=== PATIENT | female | born 1985 | race Caucasian/White ===

== ENCOUNTER 2016-06-25 08:11 | Emergency (ER) | payer MEDICAID ==
[~2016-06-25] VITALS: Ht 160 cm; Wt 90.0 kg
[~2016-06-25 08:11] MED LIST: ACET325T33 PO; ACET500C5 PO; BACTDS PO; CEPH-443 PO; CYCL-319 PO; HYDR-906 PO; IBUP400T22 PO; METR500T PO; NITR-58 PO; PHEN-537 PO
[2016-06-25 08:14] VITALS: Ht 160 cm; Wt 90.0 kg
[2016-06-25] MEDS ORDERED: IBUPROFEN 800 MG TAB PO ONE (09:00)
--- NOTE | 2016-06-25 09:17 | RADRPT ---
PROCEDURE: XR Chest. CLINICAL INDICATION: Chest pain. TECHNIQUE: Single frontal chest x-ray. COMPARISON: None available FINDINGS: The lungs are clear. No focal opacification is seen. No pneumothorax or pleural effusion is seen. The cardiomediastinal silhouette is unremarkable. The osseous structures are grossly unremarkable. IMPRESSION: No evidence of acute cardiopulmonary disease. RPTAT: II .Ray Jenkins MD, MD Date Time Electronically viewed and signed by .Ray Jenkins MD, on 06/25/2016 09:16 .A/
[2016-06-25] MEDS ORDERED: IBUP-1542 PO (09:42)
[2016-06-25 10:16] VITALS: BP 127/76; PULSE 84; RESP 18; TEMP 97.9
--- NOTE | 2016-06-25 10:37 | ERD ---
ER Documentation Chief Complaint Date/Time DATE: 06/25/16 TIME: 10:30 Chief Complaint chest wall pain HPI 30-year-old female patient with no significant past medical history presents the ED complaining of chest pain that started 2 days ago. Reports that the pain radiates from the left side of her chest to her left shoulder. States that she does feel stressful. States that the pain is worsened when she presses on her chest. Denies any drug use, alcohol use, smoking. Denies any abdominal pain, nausea, vomiting, diarrhea, back pain, flank pain, constipation , hematuria. States that her last menses was 1 month ago. ROS All systems reviewed and are negative except as per history of present illness. Medications Home Meds Active Scripts Ibuprofen* (Motrin*) 600 Mg Tab, 600 MG PO Q6, #30 TAB Prov:TENNILLE GALLEGO PA-C 06/25/16 Cyclobenzaprine Hcl* (Cyclobenzaprine Hcl*) 10 Mg Tablet, 10 MG PO TID, #15 TAB Prov:LYDIA MEEKS NP 12/10/15 Hydrocodone/Acetaminophen ([place] 5-325 Tablet) 1 Each Tablet, 1 TAB PO Q6H Y for PAIN, #20 TAB Prov:LYDIA MEEKS NP 12/10/15 Acetaminophen* (Tylophen*) 500 Mg Capsule, 1 CAP PO Q6H Y for PAIN AND OR ELEVATED TEMP, #20 CAP Prov:LYDIA MEEKS NP 12/10/15 Acetaminophen* (Tylenol*) 325 Mg Tablet, 2 TAB PO Q8 Y for PAIN AND OR ELEVATED TEMP, #30 TAB Prov:TENNILLE GALLEGO PA-C 11/10/15 Cephalexin* (Keflex*) 500 Mg Capsule, 500 MG PO QID for 7 Days, CAP Prov:TENNILLE GALLEGO PA-C 11/10/15 Metronidazole* (Flagyl*) 500 Mg Tablet, 500 MG PO TID for 7 Days, TAB Prov:LESLIE GONZALEZ 11/09/15 Acetaminophen* (Tylophen*) 500 Mg Capsule, 1 CAP PO Q6H Y for PAIN AND OR ELEVATED TEMP, #20 CAP 0 Refills Prov:KARLI CHE PA-C 07/11/15 Ibuprofen* (Motrin*) 400 Mg Tab, 400 MG PO Q8, #30 TAB 0 Refills Prov:CHINEDUKARLI VASQUEZ 07/11/15 Phenazopyridine Hcl* (Pyridium*) 100 Mg Tab, 100 MG PO TID Y for URINARY PAIN, # 9 TAB 0 Refills Prov:CHINEDUKARLI TERRYC 07/11/15 Nitrofurantoin Monohyd Macrocr* (Macrobid*) 100 Mg Capsr, 100 MG PO BID for 7 Days, #14 CAP 0 Refills Prov:CHINEDUKARLI PA-C 07/11/15 Cephalexin* (Keflex*) 500 Mg Capsule, 500 MG PO QID for 7 Days, CAP Prov:BUCKY FITZGERALD. WATCH AND CLOCK REPAIRER 12/13/14 Acetaminophen* (Tylophen*) 500 Mg Capsule, 1 CAP PO Q6H Y for PAIN AND OR ELEVATED TEMP, #20 CAP Prov:TONY GONZALES PA-C 12/11/14 Sulfamethoxazole-Trimethoprim* (Bactrim* DS) 800-160 Mg Tab, 1 TAB PO BID for 7 Days, TAB Prov:TONY GONZALESC 12/11/14 Allergies Allergies: Coded Allergies: No Known Allergy (Verified , 11/08/15) PMhx/Soc History of Surgery: Yes () Anesthesia Reaction: No Hx Neurological Disorder: No Hx Respiratory Disorders: No Hx Cardiac Disorders: No Hx Psychiatric Problems: No Hx Miscellaneous Medical Probl: No Hx Alcohol Use: No Hx Substance Use: No Hx Tobacco Use: No Physical Exam Vitals Vital Signs Date Time Temp Pulse Resp B/P Pulse Ox O2 Delivery O2 Flow Rate FiO2 06/25/16 10:16 97.9 84 18 127/76 99 06/25/16 08:14 98.1 90 18 132/81 99 Physical Exam Const: [id number], well-nourished. In no acute distress. Head: Atraumatic, normocephalic Eyes: Normal Conjunctiva without injection. No purulent discharge. PERRL. EOMI ENT: Normal external ear. Ear canal without erythema. Tympanic membrane pearly reed without effusion or bulging. Nasal canal clear with normal turbinates. Moist oropharynx without tonsillar exudates. Non-erythematous pharynx. Uvula midline. No drooling. No trismus. Neck: Full range of motion. No meningismus. No cervical lymphadenopathy. Resp: Clear to auscultation bilaterally. No wheezing, rhonchi, rales, or crackles. No accessory muscle use. No retractions. Cardio: Regular rate and rhythm. No murmurs, rubs or gallops. Chest: Tenderness to palpation of the anterior chest. No rashes. No erythema or edema. Pain is reproducible. Abd: Soft, non tender, non distended. Normal bowel sounds. No palpable masses. No rebound tenderness. No guarding. Skin: No petechiae or rashes Back: No midline tenderness. No CVA tenderness. Ext: No cyanosis, or edema. Neur: Awake and alert. Psych: Normal Mood and Affect Results 24 hrs Current Medications Medications (Trade) Dose Ordered Sig/Mami Route PRN Reason Start Time Stop Time Status Last Admin Dose Admin Ibuprofen (Motrin) 800 mg ONCE ONCE PO 06/25/16 09:00 06/25/16 09:01 DC 06/25/16 09:00 Procedures/MDM This is a 30-year-old female patient with no significant past medical history presents the ED complaining of chest pain that started 2 days ago. Patient is afebrile and nontoxic-appearing. Patient has normal vital signs. Patient was further evaluated the EKG and chest x-ray. Patient was given ibuprofen here in the ED with improvement of her pain. PROCEDURE: XR Chest. CLINICAL INDICATION: Chest pain. TECHNIQUE: Single frontal chest x-ray. COMPARISON: None available FINDINGS: The lungs are clear. No focal opacification is seen. No pneumothorax or pleural effusion is seen. The cardiomediastinal silhouette is unremarkable. The osseous structures are grossly unremarkable. IMPRESSION: No evidence of acute cardiopulmonary disease. EKG reviewed and interpreted by Dr. Villatoro Rate/Rhythm: [85 bpm, Normal Sinus Rhythm] No ectopy, no ST elevations, no QT prolongation, normal axis. QRS, ST, T-waves: [No changes consistent w/ acute ischemia] Impression: [No evidence of ischemia or arrhythmia] Patient symptoms are likely due to chest wall pain since pain is reproducible. Low suspicion for acute myocardial infarction, pneumothorax, pneumonia, cardiac tamponade, pulmonary embolism, AAA, aortic dissection, Boerhaave's syndrome, cardiac dysrhythmias,meningitis, intracranial bleed, seizure, stroke, TIA or other emergent conditions. Discharge medications: Ibuprofen Follow up with primary care physician in 1-2 days. Instructed patient to return to the ED sooner for any worsening symptoms. Patient's questions were answered. Patient understood and agreed with discharge plan. Patient discharged stable. Departure Diagnosis: Primary Impression: Chest wall pain Condition: Stable Patient Instructions: Chest Wall Pain, Costochondritis Referrals: [facility] YOU HAVE RECEIVED A MEDICAL SCREENING EXAM AND THE RESULTS INDICATE THAT YOU DO NOT HAVE A CONDITION THAT REQUIRES URGENT TREATMENT IN THE EMERGENCY DEPARTMENT. FURTHER EVALUATION AND TREATMENT OF YOUR CONDITION CAN WAIT UNTIL YOU ARE SEEN IN YOUR DOCTORS OFFICE WITHIN THE NEXT 1-2 DAYS. IT IS YOUR RESPONSIBILITY TO MAKE AN APPOINTMENT FOR FOLOW-UP CARE. IF YOU HAVE A PRIMARY DOCTOR --you should call your primary doctor and schedule an appointment IF YOU DO NOT HAVE A PRIMARY DOCTOR YOU CAN CALL OUR PHYSICIAN REFERRAL HOTLINE AT IF YOU CAN NOT AFFORD TO SEE A PHYSICIAN YOU CAN CHOSE FROM THE FOLLOWING [facility] [address] [facility] [employer] [facility]. [facility] [address] [employer] [facility]. [facility] [address] [facility] [address] [facility]. [facility] [address] [facility]. [facility]. [address] [facility]. [facility] YOU HAVE RECEIVED A MEDICAL SCREENING EXAM AND THE RESULTS INDICATE THAT YOU DO NOT HAVE A CONDITION THAT REQUIRES URGENT TREATMENT IN THE EMERGENCY DEPARTMENT. FURTHER EVALUATION AND TREATMENT OF YOUR CONDITION CAN WAIT UNTIL YOU ARE SEEN IN YOUR DOCTORS OFFICE WITHIN THE NEXT 1-2 DAYS. IT IS YOUR RESPONSIBILITY TO MAKE AN APPOINTMENT FOR FOLOW-UP CARE. IF YOU HAVE A PRIMARY DOCTOR --you should call your primary doctor and schedule and appointment IF YOU DO NOT HAVE A PRIMARY DOCTOR YOU CAN CALL OUR PHYSICIAN REFERRAL HOTLINE AT . IF YOU CAN NOT AFFORD TO SEE A PHYSICIAN YOU CAN CHOSE FROM THE FOLLOWING PENDING SALE TO [facility]: [facility] [place] [address] [place] [address] [facility] [address] [place] [address] [facility] [address] [place] [address] [facility] URGENT CARE/SPECIALTIES Additional Instructions: Llame al doctor MAANA y geovanna neema SUSHMA PARA DENTRO DE 2-3 BAEZ.Dgale a la secretaria que nosotros le instruimos hacer esta sushma.Avise o llame si durbin condicin se empeora antes de la sushma. Regresa aqui si peor o no mejor. TENNILLE GALLEGO PA-C June 25, 2016 10:37 TENNILLE GALLEGO PA-C June 25, 2016 10:37
== END 2016-06-25 11:06 | disposition home or self-care (01) ==
LOC: FTE 08:11
DX: R07.89 Other chest pain (principal)
CPT/HCPCS: 71010; 93005; Z7502; Z7610

== ENCOUNTER 2016-12-19 17:46 | Emergency (ER) | payer MEDICAID ==
[~2016-12-19] VITALS: Wt 87.5 kg
[~2016-12-19 17:46] MED LIST changes: +IBUP-1542 PO
[2016-12-19] MEDS ORDERED: ACETAMINOPHEN 500 MG TAB PO STA (18:36)
--- NOTE | 2016-12-19 19:18 | RADRPT ---
PROCEDURE: US OB. CLINICAL INDICATION: Vaginal bleeding. TECHNIQUE: Multiple sonographic images of the uterus were obtained. The images were revi ewed on a PACS workstation. COMPARISON: No prior studies are available for comparison. FINDINGS: There is a single live intrauterine gestation. heart rate is 163 beats per minute. Measurements were made in order to determine age. The results are as follows: BPD = 3.70 cm. HC = 14.29 cm. AC = 11.89 cm. FL = 2.82 cm. Estimated weight is 202 +/- 30 grams. LMP growth percentile is 47 %. Maximum vertical pocket of amniotic fluid is 3.7 cm. Menstrual age by ultrasound dates is 17 weeks 4 days. The estimated date of delivery is 05/25/2017. Position is cephalic and placenta is anterior grade II. There is no evidence for an abruption or naomi centa previa. IMPRESSION: 1. Single live intrauterine gestation of 17 weeks 4 days menstrual age by ultrasound dates. 2. The estimated date of delivery is 05/25/2017. RPTAT: QQ .Amari Lentz MD, MD Date Time Electronically viewed and signed by .Amari Lentz MD, on 12/19/2016 19:17 .R/
--- NOTE | 2016-12-19 19:25 | ERD ---
ER Documentation Chief Complaint Chief Complaint LOWER R BACK PAIN WITH DYSURIA 18 WEEKS PREG HPI This is a 31-year-old female who presents the emergency department today complaining of right-sided pelvic pain and right-sided back pain with pain with urination for the past 15 days. Patient states that she was taking an antibiotic for urinary tract infection. States she finished the course. States that she has not taken any medication for her pain. States that she has been seen at [facility] but does not currently have care as she lives in [place] but her [facility] is located down here in the [place] area. She states it is too difficult to get to the doctor.. Denies any vaginal bleeding, fevers or chills. ROS All systems reviewed and are negative except as per history of present illness. Medications Home Meds Active Scripts Bacitracin* (Bacitracin Oint (UD)*) 1 Applic Oint, 1 APPLIC TOP ONCE, #7 PKT APPLY TO Labia Prov:CIARA REECE PA-C 12/19/16 Acetaminophen* (Tylophen*) 500 Mg Capsule, 1 CAP PO Q6H Y for PAIN AND OR ELEVATED TEMP, #30 CAP Prov:CIARA REECE PA-C 12/19/16 Ibuprofen* (Motrin*) 600 Mg Tab, 600 MG PO Q6, #30 TAB Prov:TENNILLE GALLEGO PA-C 06/25/16 Cyclobenzaprine Hcl* (Cyclobenzaprine Hcl*) 10 Mg Tablet, 10 MG PO TID, #15 TAB Prov:LYDIA MEEKS NP 12/10/15 Hydrocodone/Acetaminophen ([place] 5-325 Tablet) 1 Each Tablet, 1 TAB PO Q6H Y for PAIN, #20 TAB Prov:LYDIA MEESK NP 12/10/15 Acetaminophen* (Tylophen*) 500 Mg Capsule, 1 CAP PO Q6H Y for PAIN AND OR ELEVATED TEMP, #20 CAP Prov:LYDIA MEEKS NP 12/10/15 Acetaminophen* (Tylenol*) 325 Mg Tablet, 2 TAB PO Q8 Y for PAIN AND OR ELEVATED TEMP, #30 TAB Prov:TENNILLE GALLEGO PA-C 11/10/15 Cephalexin* (Keflex*) 500 Mg Capsule, 500 MG PO QID for 7 Days, CAP Prov:TENNILLE GALLEGOC 11/10/15 Metronidazole* (Flagyl*) 500 Mg Tablet, 500 MG PO TID for 7 Days, TAB Prov:LESLIE GONZALEZ 11/09/15 Acetaminophen* (Tylophen*) 500 Mg Capsule, 1 CAP PO Q6H Y for PAIN AND OR ELEVATED TEMP, #20 CAP 0 Refills Prov:KARLI CHE PA-C 07/11/15 Ibuprofen* (Motrin*) 400 Mg Tab, 400 MG PO Q8, #30 TAB 0 Refills Prov:KARLI CHE 07/11/15 Phenazopyridine Hcl* (Pyridium*) 100 Mg Tab, 100 MG PO TID Y for URINARY PAIN, # 9 TAB 0 Refills Prov:KARLI CHE 07/11/15 Nitrofurantoin Monohyd Macrocr* (Macrobid*) 100 Mg Capsr, 100 MG PO BID for 7 Days, #14 CAP 0 Refills Prov:KARLI CHE 07/11/15 Cephalexin* (Keflex*) 500 Mg Capsule, 500 MG PO QID for 7 Days, CAP Prov:LIA,BUCKY X. FOREST ECOLOGIST 12/13/14 Acetaminophen* (Tylophen*) 500 Mg Capsule, 1 CAP PO Q6H Y for PAIN AND OR ELEVATED TEMP, #20 CAP Prov:TONY GONZALES PA-C 12/11/14 Sulfamethoxazole-Trimethoprim* (Bactrim* DS) 800-160 Mg Tab, 1 TAB PO BID for 7 Days, TAB Prov:TONY GONZALES PA-C 12/11/14 Allergies Allergies: Coded Allergies: No Known Allergy (Verified , 11/08/15) PMhx/Soc Medical and Surgical Hx: pt denies Medical Hx History of Surgery: Yes () Anesthesia Reaction: No Hx Neurological Disorder: No Hx Respiratory Disorders: No Hx Cardiac Disorders: No Hx Psychiatric Problems: No Hx Miscellaneous Medical Probl: No Hx Alcohol Use: No Hx Substance Use: No Hx Tobacco Use: No Smoking Status: Never smoker Physical Exam Vitals Vital Signs Date Time Temp Pulse Resp B/P Pulse Ox O2 Delivery O2 Flow Rate FiO2 12/19/16 17:57 99.1 97 18 129/73 98 Physical Exam Const: NAD Head: Atraumatic Eyes: Normal Conjunctiva ENT: Normal External Ears, Nose and Mouth. Neck: Full range of motion..~ No meningismus. Resp: Clear to auscultation bilaterally Cardio: Regular rate and rhythm, no murmurs Abd: Soft, right sided pelvic tenderness non distended. Normal bowel sounds no tenderness at McBurney's. : External vaginal exam with no discharge, drainage, mild erythema 1 small abrasion no vesicles or lesions Skin: No petechiae or rashes Back: No midline or flank tenderness Ext: No cyanosis, or edema Neur: Awake and alert Psych: Normal Mood and Affect Result Diagram: 12/19/16 1850 Results 24 hrs Laboratory Tests Test 12/19/16 18:49 12/19/16 18:50 Urine Color YELLOW Urine Clarity CLEAR Urine pH 6.0 Urine Specific [place] 1.028 Urine Ketones NEGATIVEmg/dL Urine Nitrite NEGATIVEmg/dL Urine Bilirubin NEGATIVEmg/dL Urine Urobilinogen 1+mg/dL Urine Leukocyte Esterase TRACELeu/ul Urine Microscopic RBC 5/HPF Urine Microscopic WBC 4/HPF Urine Squamous Epithelial Cells FEW/HPF Urine Mucus FEW/HPF Urine Hemoglobin NEGATIVEmg/dL Urine Glucose NEGATIVEmg/dL Urine Total Protein NEGATIVEmg/dl White Blood Count 10.210^3/ul Red Blood Count 4.0510^6/ul Hemoglobin 11.9g/dl Hematocrit 35.6% Mean Corpuscular Volume 87.9fl Mean Corpuscular Hemoglobin 29.4pg Mean Corpuscular Hemoglobin Concent 33.4g/dl Red Cell Distribution Width 13.1% Platelet Count 38704^3/UL Mean Platelet Volume 9.4fl Neutrophils % 73.7% Lymphocytes % 18.0% Monocytes % 6.7% Eosinophils % 0.9% Basophils % 0.2% Nucleated Red Blood Cells % 0.0/100WBC Neutrophils # 7.510^3/ul Lymphocytes # 1.810^3/ul Monocytes # 0.710^3/ul Eosinophils # 0.110^3/ul Basophils # 0.010^3/ul Nucleated Red Blood Cells # 0.010^3/ul Beta HCG, Quantitative 70124.0mIU/ml Current Medications Medications (Trade) Dose Ordered Sig/Mami Route PRN Reason Start Time Stop Time Status Last Admin Dose Admin Acetaminophen (Tylenol Tab) 500 mg ONCE STAT PO 12/19/16 18:36 12/19/16 18:38 DC 12/19/16 18:46 DIAGNOSTIC IMAGING REPORT Patient: ELIZABETH SILVA : 1985 Age: 31 Sex: F MR #: [id number] DOS: 12/19/16 0000 Ordering MD: CIARA REECE PA-C Location: [facility] Room/Bed: PROCEDURE: US OB. CLINICAL INDICATION: Vaginal bleeding. TECHNIQUE: Multiple sonographic images of the uterus were obtained. The images were reviewed on a PACS workstation. COMPARISON: No prior studies are available for comparison. FINDINGS: There is a single live intrauterine gestation. heart rate is 163 beats per minute. Measurements were made in order to determine age. The results are as follows: BPD = 3.70 cm. HC = 14.29 cm. AC = 11.89 cm. FL = 2.82 cm. Estimated weight is 202 +/- 30 grams. LMP growth percentile is 47 %. Maximum vertical pocket of amniotic fluid is 3.7 cm. Menstrual age by ultrasound dates is 17 weeks 4 days. The estimated date of delivery is 05/25/2017. Position is cephalic and placenta is anterior grade II. There is no evidence for an abruption or placenta previa. IMPRESSION: 1. Single live intrauterine gestation of 17 weeks 4 days menstrual age by ultrasound dates. 2. The estimated date of delivery is 05/25/2017. RPTAT: QQ .Amari Lentz MD, MD Date Time Electronically viewed and signed by .Amari Lentz MD, MD on 12/19/2016 19:17 .R/ CC: CIARA REECE PA-C Procedures/MDM This is a 5 P4 31-year-old female who presents to the emergency department today complaining of sided pelvic pain and back pain. Patient states she is approximately 18 weeks given this I did obtain a complete OB workup. Laboratory work shows no elevated white blood cell count. Her hemoglobin is very mildly decreased. UA shows trace leukocyte esterase. Negative nitrites. 4 microscopic white blood cells. Beta quant [id number] Rh status B + Ultrasound shows a single live intrauterine gestation of 17 weeks and 4 days. There is no evidence for an abruption or placenta previa. Estimated date of delivery is May 25, 2017. heart rate is 163 bpm. Patient symptoms at this time is consistent with pelvic pain in early and back pain. Other differentials to consider early normal versus early failed versus placenta previa versus subchorionic hemorrhage. Patient is afebrile and otherwise well-appearing. I have low suspicion for ectopic , tubo ovarian abscess, ovarian torsion. Patient had no trauma and I do not feel she requires imaging of her back at this time. She has no midline tenderness and of low suspicion for cauda equina , abscess, acute fracture dislocation. She was also complaining of some vaginal burning when she urinates she did use Monistat cream with no improvement in symptoms. I did do a pelvic exam on the patient she has 2 very small areas of abrasion likely from wiping and that is likely what is causing the irritation. There are no vesicles and of low suspicion for HSV. I have explained the results to the patient. Given a prescription for Tylenol and bacitracin At this time the patient is stable for discharge and outpatient management. Patient should follow up with their PCP in the next 1-2 days. They may return to the emergency department sooner for any persistent or worsening of symptoms. Patient understood and agreed with the plan. Departure Diagnosis: Primary Impression: Pelvic pain during Additional Impression: Back pain Back pain location: low back pain Chronicity: unspecified Back pain laterality: right Sciatica presence: without sciatica Qualified Code: M54.5 - Right-sided low back pain without sciatica, unspecified chronicity Condition: CIARA Reddy PA-C Dec 19, 2016 19:25
--- NOTE | 2016-12-19 19:25 | ERD ---
ER Documentation Chief Complaint Chief Complaint LOWER R BACK PAIN WITH DYSURIA 18 WEEKS PREG HPI This is a 31-year-old female who presents the emergency department today complaining of right-sided pelvic pain and right-sided back pain with pain with urination for the past 15 days. Patient states that she was taking an antibiotic for urinary tract infection. States she finished the course. States that she has not taken any medication for her pain. States that she has been seen at [facility] but does not currently have care as she lives in [place] but her [facility] is located down here in the [place] area. She states it is too difficult to get to the doctor.. Denies any vaginal bleeding, fevers or chills. ROS All systems reviewed and are negative except as per history of present illness. Medications Home Meds Active Scripts Bacitracin* (Bacitracin Oint (UD)*) 1 Applic Oint, 1 APPLIC TOP ONCE, #7 PKT APPLY TO [facility] Prov:CIARA REECE PA-C 12/19/16 Acetaminophen* (Tylophen*) 500 Mg Capsule, 1 CAP PO Q6H Y for PAIN AND OR ELEVATED TEMP, #30 CAP Prov:CIARA REECE PA-C 12/19/16 Ibuprofen* (Motrin*) 600 Mg Tab, 600 MG PO Q6, #30 TAB Prov:TENNILLE GALLEGO PA-C 06/25/16 Cyclobenzaprine Hcl* (Cyclobenzaprine Hcl*) 10 Mg Tablet, 10 MG PO TID, #15 TAB Prov:LYDIA MEEKS NP 12/10/15 Hydrocodone/Acetaminophen ([place] 5-325 Tablet) 1 Each Tablet, 1 TAB PO Q6H Y for PAIN, #20 TAB Prov:LYDIA MEEKS NP 12/10/15 Acetaminophen* (Tylophen*) 500 Mg Capsule, 1 CAP PO Q6H Y for PAIN AND OR ELEVATED TEMP, #20 CAP Prov:LYDIA MEEKS NP 12/10/15 Acetaminophen* (Tylenol*) 325 Mg Tablet, 2 TAB PO Q8 Y for PAIN AND OR ELEVATED TEMP, #30 TAB Prov:TENNILLE GALLEGO PA-C 11/10/15 Cephalexin* (Keflex*) 500 Mg Capsule, 500 MG PO QID for 7 Days, CAP Prov:TENNILLE GALLEGOC 11/10/15 Metronidazole* (Flagyl*) 500 Mg Tablet, 500 MG PO TID for 7 Days, TAB Prov:LESLIE GONZALEZ 11/09/15 Acetaminophen* (Tylophen*) 500 Mg Capsule, 1 CAP PO Q6H Y for PAIN AND OR ELEVATED TEMP, #20 CAP 0 Refills Prov:KARLI CHE PA-C 07/11/15 Ibuprofen* (Motrin*) 400 Mg Tab, 400 MG PO Q8, #30 TAB 0 Refills Prov:KARLI CHE 07/11/15 Phenazopyridine Hcl* (Pyridium*) 100 Mg Tab, 100 MG PO TID Y for URINARY PAIN, # 9 TAB 0 Refills Prov:KARLI CHE 07/11/15 Nitrofurantoin Monohyd Macrocr* (Macrobid*) 100 Mg Capsr, 100 MG PO BID for 7 Days, #14 CAP 0 Refills Prov:KARLI CHE 07/11/15 Cephalexin* (Keflex*) 500 Mg Capsule, 500 MG PO QID for 7 Days, CAP Prov:LIA,BUCKY X. [employer] 12/13/14 Acetaminophen* (Tylophen*) 500 Mg Capsule, 1 CAP PO Q6H Y for PAIN AND OR ELEVATED TEMP, #20 CAP Prov:TONY GONZALES PA-C 12/11/14 Sulfamethoxazole-Trimethoprim* (Bactrim* DS) 800-160 Mg Tab, 1 TAB PO BID for 7 Days, TAB Prov:TONY GONZALES PA-C 12/11/14 Allergies Allergies: Coded Allergies: No Known Allergy (Verified , 11/08/15) PMhx/Soc Medical and Surgical Hx: pt denies Medical Hx History of Surgery: Yes () Anesthesia Reaction: No Hx Neurological Disorder: No Hx Respiratory Disorders: No Hx Cardiac Disorders: No Hx Psychiatric Problems: No Hx Miscellaneous Medical Probl: No Hx Alcohol Use: No Hx Substance Use: No Hx Tobacco Use: No Smoking Status: Never smoker Physical Exam Vitals Vital Signs Date Time Temp Pulse Resp B/P Pulse Ox O2 Delivery O2 Flow Rate FiO2 12/19/16 17:57 99.1 97 18 129/73 98 Physical Exam Const: NAD Head: Atraumatic Eyes: Normal Conjunctiva ENT: Normal External Ears, Nose and Mouth. Neck: Full range of motion..~ No meningismus. Resp: Clear to auscultation bilaterally Cardio: Regular rate and rhythm, no murmurs Abd: Soft, right sided pelvic tenderness non distended. Normal bowel sounds no tenderness at McBurney's. : External vaginal exam with no discharge, drainage, mild erythema 1 small abrasion no vesicles or lesions Skin: No petechiae or rashes Back: No midline or flank tenderness Ext: No cyanosis, or edema Neur: Awake and alert Psych: Normal Mood and Affect Result Diagram: 12/19/16 1850 Results 24 hrs Laboratory Tests Test 12/19/16 18:49 12/19/16 18:50 Urine Color YELLOW Urine Clarity CLEAR Urine pH 6.0 Urine Specific [place] 1.028 Urine Ketones NEGATIVEmg/dL Urine Nitrite NEGATIVEmg/dL Urine Bilirubin NEGATIVEmg/dL Urine Urobilinogen 1+mg/dL Urine Leukocyte Esterase TRACELeu/ul Urine Microscopic RBC 5/HPF Urine Microscopic WBC 4/HPF Urine Squamous Epithelial Cells FEW/HPF Urine Mucus FEW/HPF Urine Hemoglobin NEGATIVEmg/dL Urine Glucose NEGATIVEmg/dL Urine Total Protein NEGATIVEmg/dl White Blood Count 10.210^3/ul Red Blood Count 4.0510^6/ul Hemoglobin 11.9g/dl Hematocrit 35.6% Mean Corpuscular Volume 87.9fl Mean Corpuscular Hemoglobin 29.4pg Mean Corpuscular Hemoglobin Concent 33.4g/dl Red Cell Distribution Width 13.1% Platelet Count 64199^3/UL Mean Platelet Volume 9.4fl Neutrophils % 73.7% Lymphocytes % 18.0% Monocytes % 6.7% Eosinophils % 0.9% Basophils % 0.2% Nucleated Red Blood Cells % 0.0/100WBC Neutrophils # 7.510^3/ul Lymphocytes # 1.810^3/ul Monocytes # 0.710^3/ul Eosinophils # 0.110^3/ul Basophils # 0.010^3/ul Nucleated Red Blood Cells # 0.010^3/ul Beta HCG, Quantitative 27561.0mIU/ml Current Medications Medications (Trade) Dose Ordered Sig/Mami Route PRN Reason Start Time Stop Time Status Last Admin Dose Admin Acetaminophen (Tylenol Tab) 500 mg ONCE STAT PO 12/19/16 18:36 12/19/16 18:38 DC 12/19/16 18:46 DIAGNOSTIC IMAGING REPORT Patient: ELIZABETH SILVA : 1985 Age: 31 Sex: F MR #: [id number] DOS: 12/19/16 0000 Ordering MD: CIARA REECE PA-C Location: [facility] Room/Bed: PROCEDURE: US OB. CLINICAL INDICATION: Vaginal bleeding. TECHNIQUE: Multiple sonographic images of the uterus were obtained. The images were reviewed on a PACS workstation. COMPARISON: No prior studies are available for comparison. FINDINGS: There is a single live intrauterine gestation. heart rate is 163 beats per minute. Measurements were made in order to determine age. The results are as follows: BPD = 3.70 cm. HC = 14.29 cm. AC = 11.89 cm. FL = 2.82 cm. Estimated weight is 202 +/- 30 grams. LMP growth percentile is 47 %. Maximum vertical pocket of amniotic fluid is 3.7 cm. Menstrual age by ultrasound dates is 17 weeks 4 days. The estimated date of delivery is 05/25/2017. Position is cephalic and placenta is anterior grade II. There is no evidence for an abruption or placenta previa. IMPRESSION: 1. Single live intrauterine gestation of 17 weeks 4 days menstrual age by ultrasound dates. 2. The estimated date of delivery is 05/25/2017. RPTAT: QQ .Amari Lentz MD, MD Date Time Electronically viewed and signed by .Amari Lentz MD, MD on 12/19/2016 19:17 .R/ CC: CIARA REECE PA-C Procedures/MDM This is a 5 P4 31-year-old female who presents to the emergency department today complaining of sided pelvic pain and back pain. Patient states she is approximately 18 weeks given this I did obtain a complete OB workup. Laboratory work shows no elevated white blood cell count. Her hemoglobin is very mildly decreased. UA shows trace leukocyte esterase. Negative nitrites. 4 microscopic white blood cells. Beta quant [id number] Rh status B + Ultrasound shows a single live intrauterine gestation of 17 weeks and 4 days. There is no evidence for an abruption or placenta previa. Estimated date of delivery is May 25, 2017. heart rate is 163 bpm. Patient symptoms at this time is consistent with pelvic pain in early and back pain. Other differentials to consider early normal versus early failed versus placenta previa versus subchorionic hemorrhage. Patient is afebrile and otherwise well-appearing. I have low suspicion for ectopic , tubo ovarian abscess, ovarian torsion. Patient had no trauma and I do not feel she requires imaging of her back at this time. She has no midline tenderness and of low suspicion for cauda equina , abscess, acute fracture dislocation. She was also complaining of some vaginal burning when she urinates she did use Monistat cream with no improvement in symptoms. I did do a pelvic exam on the patient she has 2 very small areas of abrasion likely from wiping and that is likely what is causing the irritation. There are no vesicles and of low suspicion for HSV. I have explained the results to the patient. Given a prescription for Tylenol and bacitracin At this time the patient is stable for discharge and outpatient management. Patient should follow up with their PCP in the next 1-2 days. They may return to the emergency department sooner for any persistent or worsening of symptoms. Patient understood and agreed with the plan. Departure Diagnosis: Primary Impression: Pelvic pain during Additional Impression: Back pain Back pain location: low back pain Chronicity: unspecified Back pain laterality: right Sciatica presence: without sciatica Qualified Code: M54.5 - Right-sided low back pain without sciatica, unspecified chronicity Condition: CIARA Reddy PA-C Dec 19, 2016 19:25
[2016-12-19] MEDS ORDERED: ACET500C5 PO (20:16)
[2016-12-19] MEDS ORDERED: BACITUD TOP (20:17)
[2016-12-19 20:27] VITALS: BP 111/73; PULSE 84; RESP 16
== END 2016-12-19 20:29 | disposition home or self-care (01) ==
LOC: FTE 17:46
DX: O26.892 Other specified pregnancy related conditions, second trimester (principal); R10.2 Pelvic and perineal pain; O99.89 Other specified diseases and conditions complicating pregnancy, childbirth and the puerperium; M54.5 Low back pain; Z3A.17 17 weeks gestation of pregnancy
CPT/HCPCS: 36415; 76805; 81001; 84702; 85025; 86900; 86901; 87086; Z7502; Z7610